=== PATIENT | female | born 1940 | race Caucasian/White ===

== ENCOUNTER → 2016-09-08 | Outpatient (CLI) | payer MEDICARE, OTHER ==
[~2016-09-08] MED LIST: APIX5TAB PO; BENICAR PO; CARV3.1212 PO; COREG PO; FURO-92 PO; HYDR-3138 PO; OLME20TA PO
[2016-09-08 12:04] LABS: HEMOGLOBIN 16.6 g/dL (11.7-16.4)
[2016-09-08 12:14] LABS: ASPARTATE AMINO TRANSFERASE 23 U/L (15-37); BLOOD UREA NITROGEN 15 mg/dL (7-18)
== END | disposition home or self-care (01) ==
LOC: STAR 10:38
PROVIDERS: ATTEND Orthopaedic Surgery Adult Reconstructive Orthopaedic Surgery
DX: Z01.818 Encounter for other preprocedural examination (principal); M17.9 Osteoarthritis of knee, unspecified; M16.11 Unilateral primary osteoarthritis, right hip
CPT/HCPCS: 36415; 80053; 81003; 85025; 85610; 85730; 87081; 93005

== ENCOUNTER 2016-09-20 10:43 | Inpatient (IN) | payer MEDICARE, OTHER ==
[~2016-09-20] VITALS: Ht 167.6 cm; Wt 88.0 kg
[2016-09-20 13:42] VITALS: BP 195/115
[2016-09-20] MEDS ORDERED: VANCOMYCIN PER PHARMACY MC STA (14:02)
[2016-09-20] MEDS ORDERED: LACTATED RINGERS 1,000 ML IV SCH (14:17)
[2016-09-20] MEDS ORDERED: CARVEDILOL 3.125 MG TABLET PO STA (14:29)
[2016-09-20] MEDS ORDERED: VANCOMYCIN 1,400 MG in SODIUM CHLORIDE 0.9% 250 ML IV ONE (14:30)
[2016-09-20] MEDS ORDERED: MIDAZOLAM 1 MG/ML, 2ML ONE ×2 (14:49→17:58)
[2016-09-20] MEDS ORDERED: FENTANYL PF 250 MCG/5ML ONE (14:49)
[2016-09-20] MEDS ORDERED: hydrALAzine 20 MG/ML, 1ML ONE (16:03)
[2016-09-20] MEDS ORDERED: ONDANSETRON 2MG/ML, 2ML ONE (16:03)
[2016-09-20] MEDS ORDERED: SUCCINYLCHOLINE 20 MG/ML, 10ML ONE (16:03)
[2016-09-20] MEDS ORDERED: PROPOFOL 10 MG/ML, 20ML ONE (16:03)
[2016-09-20] MEDS ORDERED: CEFAZOLIN 1,000 MG ONE (16:03)
[2016-09-20] MEDS ORDERED: ROCURONIUM 10 MG/ML ONE (16:03)
[2016-09-20] MEDS ORDERED: ACETAMINOPHEN 325 MG TABLET PO PRN (17:00)
[2016-09-20] MEDS ORDERED: METOCLOPRAMIDE 5 MG/ML, 2ML IV PRN (17:00)
[2016-09-20] MEDS ORDERED: hydrALAzine 20 MG/ML, 1ML IV PRN (17:00)
[2016-09-20] MEDS ORDERED: ONDANSETRON 2MG/ML, 2ML IVPush PRN (17:00)
[2016-09-20] MEDS ORDERED: OXYcodone 5 MG/5 ML ORAL.SOL UDC PO PRN (17:00)
[2016-09-20] MEDS ORDERED: LABETALOL 5MG/ML, 20ML IV PRN (17:00)
[2016-09-20] MEDS ORDERED: ACETAMINOPHEN 325 MG TABLET ONE (17:55)
[2016-09-20] MEDS ORDERED: ACETAMINOPHEN 650 MG/20.3 ML UDC ONE (17:55)
[2016-09-20] MEDS ORDERED: FENTANYL PF 100 MCG/2ML ONE (17:55)
[2016-09-20] MEDS ORDERED: HYDROmorphone 2 MG/ML, 1ML ONE (17:55)
[2016-09-20] MEDS ORDERED: OXYcodone 5 MG/5 ML ORAL.SOL UDC ONE (17:56)
[2016-09-20] MEDS: FENTANYL PF 100 MCG/2ML IV PRN ×2 (18:00→18:09)
[2016-09-20] MEDS ORDERED: ONDANSETRON 2MG/ML, 2ML IV PRN (18:00)
[2016-09-20] MEDS ORDERED: ONDANSETRON 4 MG TABLET PO PRN (18:00)
[2016-09-20] MEDS: ACETAMINOPHEN 650 MG/20.3 ML UDC PO SCH (18:00)
[2016-09-20] MEDS ORDERED: BISACODYL 10 MG SUPP PR PRN (18:00)
[2016-09-20] MEDS ORDERED: DIPHENHYDRAMINE 25 MG CAPSULE PO PRN (18:00)
[2016-09-20] MEDS ORDERED: FUROSEMIDE 40 MG TABLET PO SCH (18:00)
[2016-09-20] MEDS ORDERED: ALUMINUM/MAG/SIMETHICONE 30 ML UDC PO PRN (18:00)
[2016-09-20] MEDS ORDERED: SENNA/DOCUSATE TABLET PO PRN (18:00)
[2016-09-20] MEDS ORDERED: MAGNESIUM HYDROXIDE 8%, 30ML UDC PO PRN (18:00)
[2016-09-20] MEDS ORDERED: HYDROmorphone 1 MG/ML, 1ML IV PRN (18:00)
[2016-09-20] MEDS: HYDROmorphone 1 MG/ML, 1ML IV PRN ×6 (18:16→19:05)
[2016-09-20] MEDS: MIDAZOLAM 1 MG/ML, 2ML IV PRN ×2 (18:27→18:47)
[2016-09-20] MEDS ORDERED: TRANEXAMIC ACID 1,000 MG in SODIUM CHLORIDE 0.9% 100 ML IVPB ONE (19:00)
[2016-09-20] MEDS: OXYcodone IR 5MG TABLET PO PRN (20:26)
[2016-09-20] MEDS: DOCUSATE 100 MG CAPSULE PO SCH (20:26)
[2016-09-20] MEDS: FUROSEMIDE MC SCH (20:30)
[2016-09-20] MEDS: CARVEDILOL 3.125 MG TABLET PO SCH (21:52)
[2016-09-20] MEDS: D5%-0.45NACL+KCL 20MEQ 1,000 ML IV SCH (21:55)
[2016-09-21] MEDS: ACETAMINOPHEN 650 MG/20.3 ML UDC PO SCH ×2 (00:19→06:22)
[2016-09-21 00:20] VITALS: BP 127/73
[2016-09-21] MEDS: CEFAZOLIN PMX 2GM/100ML 100 ML IVPB SCH ×2 (00:24→07:58)
[2016-09-21] MEDS: OXYcodone IR 5MG TABLET PO PRN ×3 (01:31→09:10)
[2016-09-21 02:48] VITALS: BP 122/72
[2016-09-21] MEDS: FUROSEMIDE MC SCH (04:30)
[2016-09-21] MEDS ORDERED: DEXAMETHASONE 4 MG/ML, 1ML IVPush SCH (06:00)
[2016-09-21 06:50] VITALS: BP 126/57
[2016-09-21] MEDS: CARVEDILOL 3.125 MG TABLET PO SCH ×2 (07:57→20:32)
[2016-09-21] MEDS: TAMSULOSIN 0.4 MG CAP.ER.24H PO SCH ×2 (07:57→08:10)
[2016-09-21] MEDS: D5%-0.45NACL+KCL 20MEQ 1,000 ML IV SCH ×2 (07:58→15:38)
[2016-09-21] MEDS: DOCUSATE 100 MG CAPSULE PO SCH ×2 (07:58→20:32)
[2016-09-21] MEDS: MULTIVITAMINS/MINERALS TABLET PO SCH (07:58)
[2016-09-21] MEDS: LOSARTAN 50MG TABLET PO SCH ×2 (07:58→08:11)
[2016-09-21] MEDS ORDERED: FUROSEMIDE 40 MG TABLET PO PRN (12:00)
[2016-09-21 13:06] VITALS: BP 125/64
[2016-09-21] MEDS: HYDROcodone/APAP 10/325 MG TABLET PO PRN ×4 (13:14→22:11)
[2016-09-21] MEDS ORDERED: HYDROcodone/APAP 10/325 MG TABLET PO PRN (13:30)
[2016-09-21] MEDS: APIXABAN 5 MG TABLET PO SCH (15:29)
[2016-09-21] MEDS: KETOROLAC 30 MG/1 ML IV SCH (18:00)
[2016-09-21 20:03] VITALS: BP 108/51
[2016-09-22] MEDS: HYDROcodone/APAP 10/325 MG TABLET PO PRN ×6 (02:06→23:58)
[2016-09-22] MEDS: KETOROLAC 30 MG/1 ML IV SCH ×2 (02:06→10:12)
[2016-09-22 02:20] VITALS: BP 136/68
[2016-09-22] MEDS: D5%-0.45NACL+KCL 20MEQ 1,000 ML IV SCH ×3 (03:14→23:52)
[2016-09-22 07:05] VITALS: BP 115/54
[2016-09-22] MEDS: TAMSULOSIN 0.4 MG CAP.ER.24H PO SCH (08:34)
[2016-09-22] MEDS: BENICAR HCT HOMEMEDPO SCH (08:34)
[2016-09-22] MEDS: APIXABAN 5 MG TABLET PO SCH ×2 (08:34→20:49)
[2016-09-22] MEDS: CARVEDILOL 3.125 MG TABLET PO SCH ×2 (08:34→20:49)
[2016-09-22] MEDS: DOCUSATE 100 MG CAPSULE PO SCH ×2 (08:34→20:48)
[2016-09-22] MEDS: MULTIVITAMINS/MINERALS TABLET PO SCH (08:34)
[2016-09-22] MEDS ORDERED: VALSARTAN 160 MG TABLET PO SCH (09:00)
[2016-09-22 14:57] VITALS: BP 110/65
[2016-09-22 18:32] VITALS: BP 104/46
[2016-09-23 01:51] VITALS: BP 103/56
[2016-09-23] MEDS: HYDROcodone/APAP 10/325 MG TABLET PO PRN ×3 (04:13→12:09)
[2016-09-23 06:47] VITALS: BP 118/67
[2016-09-23] MEDS: BENICAR HCT HOMEMEDPO SCH (08:13)
[2016-09-23] MEDS: DOCUSATE 100 MG CAPSULE PO SCH (08:14)
[2016-09-23] MEDS: APIXABAN 5 MG TABLET PO SCH (08:15)
[2016-09-23] MEDS: CARVEDILOL 3.125 MG TABLET PO SCH (08:15)
[2016-09-23] MEDS: TAMSULOSIN 0.4 MG CAP.ER.24H PO SCH (08:16)
[2016-09-23] MEDS: MULTIVITAMINS/MINERALS TABLET PO SCH (08:17)
[2016-09-23] MEDS: D5%-0.45NACL+KCL 20MEQ 1,000 ML IV SCH (09:26)
[2016-09-23 12:09] VITALS: BP 110/66
[2016-09-23] MEDS ORDERED: DOCU100C8 PO (13:40)
[2016-09-23] MEDS ORDERED: MULT-108 PO (13:42)
[2016-09-23] MEDS ORDERED: ONDA4TAB7 PO (13:45)
== END 2016-09-23 14:15 | disposition home or self-care (01) | DRG 470 ==
LOC: ORIP 12:47 → 4NOR 20:00 → DCLOUNGE 09-23 13:42
PROVIDERS: ADMIT Orthopaedic Surgery Adult Reconstructive Orthopaedic Surgery; ATTEND Orthopaedic Surgery Adult Reconstructive Orthopaedic Surgery
PROC: 0SR904A Replacement of Right Hip Joint with Ceramic on Polyethylene Synthetic Substitute, Uncemented, Open Approach (ICD-10-PCS; principal; 2016-09-20 14:30)
DX: M16.11 Unilateral primary osteoarthritis, right hip (principal); Z88.8 Allergy status to other drugs, medicaments and biological substances; Z88.5 Allergy status to narcotic agent; I10 Essential (primary) hypertension
CPT/HCPCS: 36415; 72170; 85018; 86850; 86900; C1713; J0690; J1100; J1170; J1885; J2250; J2405; J2704; J3010; C1776; J0330; J0360; J3480; J7120